=== PATIENT | male | born 1980 | race Caucasian/White ===

== ENCOUNTER 2020-05-21 00:20 | Inpatient (IN) | payer OTHER, MEDICAID ==
[~2020-05-21] VITALS: Ht 170.2 cm; Wt 108.9 kg
[~2020-05-21 00:20] MED LIST: BUSP30TA2 PO; CHOL100046 PO; METO-385 PO
[2020-05-21] MEDS ORDERED: ONDANSETRON HCL 4MG/2ML INJ IV STA (01:11)
[2020-05-21] MEDS ORDERED: KETOROLAC 30MG/ML VIAL IV STA (01:11)
[2020-05-21] MEDS ORDERED: SODIUM CHLORIDE 0.9% 1,000 ML IV ONE (01:15)
[2020-05-21 01:49] LABS: BASOPHILS % 0.4 % (0.0-2.0); EOSINOPHILS % 0.8 % (0.0-5.0); HEMOGLOBIN. 15.3 g/dL (14.0-18.0); LYMPHOCYTES % 10.2 % (20.0-50.0); MEAN CORPUSCULAR HEMOGLOBIN 37.7 pg (28.0-32.0); MEAN CORPUSCULAR VOLUME 108.1 fL (80.0-94.0); MEAN PLATELET VOLUME 7.8 fl (7.4-10.4); MONOCYTES % 6.7 % (2.0-8.0); NEUTROPHILS % 81.9 % (40.0-76.0); PLATELET 278 x1000/uL (130-400); RED BLOOD CELL COUNT 4.07 mill/uL (4.7-6.1); RED CELL DISTRIBUTION WIDTH 17.4 % (11.6-14.6)
[2020-05-21 01:55] LABS: CHLORIDE 100 mEq/L (98-107)
[2020-05-21] MEDS ORDERED: POTASSIUM CHLORIDE 20MEQ TABLET SR PO NR (02:15)
[2020-05-21 02:18] LABS: INR 1.1; PARTIAL THROMBOPLASTIN TIME 30.3 sec (23.4-31.0); PROTHROMBIN TIME 11.7 sec (9.6-11.0)
[2020-05-21] MEDS ORDERED: IOHEXOL-350 100 ML BOTTLE ONE (03:01)
[2020-05-21] MEDS ORDERED: CEFTRIAXONE 1 G PREMIX 50 ML IV NR (04:00)
[2020-05-21] MEDS ORDERED: SODIUM CHLORIDE 0.9% 1000ML BAG (SEPSIS BOLUS) IV NR (04:00)
[2020-05-21] MEDS ORDERED: ASPIRIN 81MG TABLET PO ONE (04:00)
[2020-05-21] MEDS ORDERED: AZITHROMYCIN 500 MG in DEXT 5% WATER 250 ML IV NR (04:00)
[2020-05-21 06:10] LABS: CLARITY URINE CLEAR (CLEAR); COLOR URINE ORANGE (YELLOW); KETONES URINE NEGATIVE (NEGATIVE); LEUKOCYTE ESTERASE URINE 1+ (NEGATIVE); NITRITE URINE POSITIVE (NEGATIVE); OCCULT BLOOD URINE NEGATIVE (NEGATIVE); PH URINE 8.5 (4.5-8.0); PROTEIN URINE 1+ (NEGATIVE); SPECIFIC GRAVITY URINE 1.016 (1.005-1.030)
[2020-05-21] MEDS ORDERED: DOCUSATE SODIUM 100MG CAPSULE PO PRN (06:30)
[2020-05-21] MEDS ORDERED: METOPROLOL TARTRATE 50MG TABLET PO SCH (06:30)
[2020-05-21] MEDS ORDERED: IPRATROPIUM/ALBUTEROL 0.5-3(2.5)MG/3ML NEB HHN PRN (06:30)
[2020-05-21] MEDS ORDERED: ACETAMINOPHEN 325MG TABLET PO PRN (06:30)
[2020-05-21 07:43] LABS: BG BASE EXCESS 0.7 mmol/L (-2.0-2.0); BG CARBOXYHEMOGLOBIN 2.6 % (0.5-1.5); BG DEOXYHEMOGLOBIN 5.9 % (0.0-5.0); BG HCO3 ACT 24.6 mmol/L (22.0-26.0); BG OXYGEN SATURATION 93.9 % (92.0-98.5); BG OXYHEMOGLOBIN 91.5 % (94.0-97.0); BG PCO2 37.1 mmHg (35.0-45.0); BG PH 7.439 (7.350-7.450); BG PO2 75.7 mmHg (75.0-100.0); BG SAMPLE SITE LEFT RADIAL; BG TOTAL HEMOGLOBIN 13.9 g/dL (12.0-18.0); BG VENT MODE ROOM AIR
[2020-05-21] MEDS: FAMOTIDINE 20MG TABLET PO SCH ×2 (08:42→23:36)
[2020-05-21] MEDS: DEXAMETHASONE 10 MG/ML VIAL IV SCH (08:42)
[2020-05-21] MEDS: ENOXAPARIN 100MG/ML SYR SUBCUT SCH ×2 (08:43→23:35)
[2020-05-21 09:05] VITALS: BP 138/78
[2020-05-21 12:00] VITALS: BP 140/78
[2020-05-21 12:24] LABS: CHLORIDE 110 mEq/L (98-107)
[2020-05-21 12:30] LABS: HEMATOCRIT. 39.5 % (42.0-52.0); HEMOGLOBIN. 13.7 g/dL (14.0-18.0); MEAN CORPUSCULAR VOLUME 109.9 fL (80.0-94.0); MEAN PLATELET VOLUME 7.9 fl (7.4-10.4); PLATELET 245 x1000/uL (130-400); RED CELL DISTRIBUTION WIDTH 17.7 % (11.6-14.6)
[2020-05-21] MEDS: NICOTINE 21MG PATCH TD SCH (12:52)
[2020-05-21] MEDS: HYDROMORPHONE HCL/PF 2MG/ML CPJ IV PRN ×3 (12:52→23:34)
[2020-05-21 13:34] LABS: PLATELET ESTIMATE NORMAL
[2020-05-21] MEDS: SODIUM CHLORIDE 0.9% INJ 3ML FLUSH IVF SCH ×2 (15:23→23:36)
[2020-05-21 16:00] VITALS: BP 138/55
[2020-05-21 20:44] VITALS: BP 144/75
[2020-05-22] VITALS: BP 152/88
[2020-05-22 04:00] VITALS: BP 127/75
[2020-05-22] MEDS: SODIUM CHLORIDE 0.9% INJ 3ML FLUSH IVF SCH ×3 (06:00→22:08)
[2020-05-22] MEDS ORDERED: AZITHROMYCIN 500 MG in DEXT 5% WATER 250 ML IV SCH (06:00)
[2020-05-22] MEDS: AZITHROMYCIN 500 MG in DEXT 5% WATER 250 ML IV SCH (06:00)
[2020-05-22] MEDS: HYDROMORPHONE HCL/PF 2MG/ML CPJ IV PRN ×3 (07:51→21:59)
[2020-05-22] MEDS: DEXAMETHASONE 10 MG/ML VIAL IV SCH (08:04)
[2020-05-22] MEDS: FAMOTIDINE 20MG TABLET PO SCH ×2 (08:04→20:25)
[2020-05-22] MEDS: ENOXAPARIN 100MG/ML SYR SUBCUT SCH (08:04)
[2020-05-22] MEDS: NICOTINE 21MG PATCH TD SCH (08:04)
[2020-05-22 12:00] VITALS: BP 117/75
[2020-05-22 16:00] VITALS: BP 145/83
[2020-05-22 20:00] VITALS: BP 140/80
[2020-05-22] MEDS: ENOXAPARIN 120MG/0.8ML SYR SUBCUT SCH (20:26)
[2020-05-23] VITALS: BP 138/75
[2020-05-23 04:00] VITALS: BP 133/70
[2020-05-23] MEDS: HYDROMORPHONE HCL/PF 2MG/ML CPJ IV PRN ×4 (04:43→22:58)
[2020-05-23] MEDS: AZITHROMYCIN 500 MG in DEXT 5% WATER 250 ML IV SCH (06:10)
[2020-05-23] MEDS: SODIUM CHLORIDE 0.9% INJ 3ML FLUSH IVF SCH ×3 (06:10→21:07)
[2020-05-23 07:37] LABS: BASOPHILS % 0.2 % (0.0-2.0); EOSINOPHILS % 0.2 % (0.0-5.0); HEMATOCRIT. 36.1 % (42.0-52.0); HEMOGLOBIN. 12.5 g/dL (14.0-18.0); LYMPHOCYTES % 19.6 % (20.0-50.0); MEAN CORPUSCULAR HEMOGLOBIN 37.5 pg (28.0-32.0); MEAN CORPUSCULAR VOLUME 108.6 fL (80.0-94.0); MEAN PLATELET VOLUME 7.9 fl (7.4-10.4); MONOCYTES % 6.3 % (2.0-8.0); NEUTROPHILS % 73.7 % (40.0-76.0); PLATELET 284 x1000/uL (130-400); RED BLOOD CELL COUNT 3.33 mill/uL (4.7-6.1)
[2020-05-23 07:45] VITALS: BP 125/56
[2020-05-23 07:48] LABS: CHLORIDE 107 mEq/L (98-107)
[2020-05-23] MEDS: ENOXAPARIN 120MG/0.8ML SYR SUBCUT SCH ×2 (09:07→20:56)
[2020-05-23] MEDS: NICOTINE 21MG PATCH TD SCH (09:07)
[2020-05-23] MEDS: FAMOTIDINE 20MG TABLET PO SCH ×2 (09:07→20:55)
[2020-05-23 11:51] VITALS: BP 131/77
[2020-05-23 16:00] VITALS: BP 125/75
[2020-05-23 20:00] VITALS: BP 127/76
[2020-05-24] VITALS (7 sets, daily range): BP systolic 108–154; BP diastolic 66–89
[2020-05-24] MEDS: HYDROMORPHONE HCL/PF 2MG/ML CPJ IV PRN ×4 (04:18→21:33)
[2020-05-24] MEDS: SODIUM CHLORIDE 0.9% INJ 3ML FLUSH IVF SCH ×3 (05:32→21:34)
[2020-05-24] MEDS: AZITHROMYCIN 500 MG in DEXT 5% WATER 250 ML IV SCH (05:32)
[2020-05-24] MEDS: NICOTINE 21MG PATCH TD SCH (10:11)
[2020-05-24] MEDS: FAMOTIDINE 20MG TABLET PO SCH ×2 (10:12→21:34)
[2020-05-24] MEDS: ENOXAPARIN 120MG/0.8ML SYR SUBCUT SCH ×2 (10:31→21:34)
[2020-05-24 12:35] LABS: HEMATOCRIT 39.8 % (42.0-52.0); HEMOGLOBIN 13.9 g/dL (14.0-18.0); MEAN CORPUSCULAR HEMOGLOBIN 37.9 pg (28.0-32.0); MEAN CORPUSCULAR VOLUME 108.4 fL (80.0-94.0); PLATELET 340 x1000/uL (130-400); RED BLOOD CELL COUNT 3.67 mill/uL (4.7-6.1); RED CELL DISTRIBUTION WIDTH 18.3 % (11.6-14.6)
[2020-05-24 12:44] LABS: CHLORIDE 105 mEq/L (98-107)
[2020-05-25] VITALS: BP 141/85
[2020-05-25] MEDS: HYDROMORPHONE HCL/PF 2MG/ML CPJ IV PRN ×4 (01:07→13:07)
[2020-05-25 04:00] VITALS: BP 114/84
[2020-05-25] MEDS: SODIUM CHLORIDE 0.9% INJ 3ML FLUSH IVF SCH (05:15)
[2020-05-25] MEDS: AZITHROMYCIN 500 MG in DEXT 5% WATER 250 ML IV SCH (05:15)
[2020-05-25 06:04] LABS: CHLORIDE 104 mEq/L (98-107)
[2020-05-25 06:27] LABS: HEMATOCRIT. 36.1 % (42.0-52.0); HEMOGLOBIN. 12.7 g/dL (14.0-18.0); MEAN CORPUSCULAR HEMOGLOBIN 38.6 pg (28.0-32.0); MEAN CORPUSCULAR VOLUME 109.3 fL (80.0-94.0); MEAN PLATELET VOLUME 7.9 fl (7.4-10.4); PLATELET 315 x1000/uL (130-400); RED CELL DISTRIBUTION WIDTH 18.5 % (11.6-14.6)
[2020-05-25 08:00] VITALS: BP 147/85
[2020-05-25 08:30] LABS: PLATELET ESTIMATE NORMAL
[2020-05-25] MEDS: NICOTINE 21MG PATCH TD SCH (09:13)
[2020-05-25] MEDS: ENOXAPARIN 120MG/0.8ML SYR SUBCUT SCH (09:14)
[2020-05-25] MEDS: FAMOTIDINE 20MG TABLET PO SCH (09:15)
[2020-05-25 12:00] VITALS: BP 119/77
[2020-05-25 14:33] VITALS: BP 18/119
== END 2020-05-25 15:25 | disposition home health service (06) | DRG 175 ==
LOC: ER 00:20 → 7EST 05:49 → EDBEDREQ 06:00 → ENRESERV 08:16 → 8WST 05-22 22:26
PROVIDERS: ADMIT Ophthalmology; ATTEND Ophthalmology
DX: I26.99 Other pulmonary embolism without acute cor pulmonale (principal); J96.01 Acute respiratory failure with hypoxia; E87.2 Acidosis; I82.412 Acute embolism and thrombosis of left femoral vein; Z20.828 Contact with and (suspected) exposure to other viral communicable diseases; F41.9 Anxiety disorder, unspecified; F17.210 Nicotine dependence, cigarettes, uncomplicated; F32.9 Major depressive disorder, single episode, unspecified; I10 Essential (primary) hypertension; K76.0 Fatty (change of) liver, not elsewhere classified; Z82.49 Family history of ischemic heart disease and other diseases of the circulatory system; Z87.442 Personal history of urinary calculi; Z79.01 Long term (current) use of anticoagulants; Z79.899 Other long term (current) drug therapy
CPT/HCPCS: 36415; 36600; 71275; 80048; 80053; 81003; 82375; 82805; 83605; 83615; 83735; 83880; 84145; 84484; 85025; 85027; 85379; 86141; 87635; 93005; 93306; 93970; 97162; 99291; J0456; J0696; J1100; J1170; J1650; J1885; J2405; J7030; J7060; Q9967

== ENCOUNTER 2024-10-27 15:42 | Inpatient (IN) | payer MEDICAID, OTHER ==
[~2024-10-27] VITALS: Ht 170.2 cm; Wt 112.5 kg
[2024-10-27 15:44] VITALS: O2SAT 95
[2024-10-27] MEDS: SODIUM CHLORIDE 0.9% 1,000 ML IV ONE ×2 (16:44→20:59)
[2024-10-27] MEDS: ONDANSETRON HCL 4MG/2ML INJ IV STA (16:48)
[2024-10-27 17:11] LABS: BASOPHILS % 0.4 % (0.0-2.0); DIFFERENTIAL COMMENT 0; EOSINOPHILS % 0.4 % (0.0-5.0); HEMATOCRIT. 51.3 % (42.0-52.0); HEMOGLOBIN. 17.8 g/dL (14.0-18.0); MEAN CORPUSCULAR HEMOGLOBIN 35.7 pg (28.0-32.0); MEAN CORPUSCULAR HGB CONC 34.7 g/dL (31.0-37.0); MEAN CORPUSCULAR VOLUME 102.8 fL (80.0-94.0); MEAN PLATELET VOLUME 8.3 fl (7.4-10.4); MONOCYTES % 11.8 % (2.0-8.0); NEUTROPHILS % 65.4 % (40.0-76.0); PLATELET 193 x1000/uL (130-400); RED BLOOD CELL COUNT 4.99 mill/uL (4.7-6.1); WHITE BLOOD COUNT 13.2 x1000/uL (4.5-11.0)
[2024-10-27 17:17] LABS: CHLORIDE 96 mEq/L (98-107); POTASSIUM 3.5 mEq/L (3.5-5.1); SODIUM 139 mEq/L (136-145)
[2024-10-27 17:18] LABS: CARBON DIOXIDE 29 mEq/L (21-32)
[2024-10-27 17:19] LABS: CALCIUM 10.6 mg/dL (8.7-10.4)
[2024-10-27 17:23] LABS: CREATININE 0.7 mg/dL (0.6-1.3)
[2024-10-27 17:24] LABS: ETHANOL BLOOD 282 mg/dL (<10); GLUCOSE 117 mg/dL (70-105); UREA NITROGEN BLOOD 6 mg/dL (9-23)
[2024-10-27 17:25] LABS: ALANINE AMINOTRANSFERASE 45 IU/L (10-49); ALBUMIN 4.3 g/dL (3.2-4.8); ASPARTATE AMINOTRANSFERASE 70 IU/L (<34)
[2024-10-27 17:26] LABS: BILIRUBIN DIRECT 0.2 mg/dL (<=3.0); BILIRUBIN TOTAL 0.7 mg/dL (0.1-1.0); LACTIC ACID 3.3 mmol/L (0.4-2.0); TROPONIN I HIGH SENSITIVITY < 4 ng/L (3.0-53)
[2024-10-27 17:41] LABS: INR 1.1; PARTIAL THROMBOPLASTIN TIME 28.2 sec (23.4-31.0); PROTHROMBIN TIME 11.6 sec (9.6-11.0)
[2024-10-27] MEDS: SODIUM CHLORIDE 0.9% (SEPSIS BOLUS) IV ONE (18:02)
[2024-10-27 18:31] LABS: CLARITY URINE CLOUDY (CLEAR); COLOR URINE YELLOW (YELLOW); GLUCOSE URINE NEGATIVE (NEGATIVE); KETONES URINE NEGATIVE (NEGATIVE); LEUKOCYTE ESTERASE URINE NEGATIVE (NEGATIVE); NITRITE URINE NEGATIVE (NEGATIVE); OCCULT BLOOD URINE TRACE (NEGATIVE); PH URINE 7.5 (4.5-8.0); PROTEIN URINE TRACE (NEGATIVE); SPECIFIC GRAVITY URINE 1.009 (1.005-1.030); UROBILINOGEN URINE 0.2 E.U./dL (0.2-1.0)
[2024-10-27 18:35] LABS: LACTIC ACID 2.8 mmol/L (0.4-2.0)
[2024-10-27] MEDS: LORAZEPAM 0.5MG TABLET PO ONE (19:09)
[2024-10-27 19:24] LABS: AMORPHOUS SEDIMENT URINE 2+ /lpf; BACTERIA URINE 2+; RBC URINE 0-2 /hpf (0-2); SQUAMOUS EPITHELIAL CELL URINE FEW /lpf (RARE/1+); WBC URINE 0-2 /hpf (0-2)
[2024-10-27] MEDS: METOCLOPRAMIDE HCL 10MG/2ML VIAL IV ONE (21:00)
[2024-10-27] MEDS: LORAZEPAM 2MG/ML INJ IV ONE (21:10)
[2024-10-27 22:35] VITALS: BP 151/97; PULSE 102; RESP 17; TEMP 36.3; O2SAT 95
[2024-10-27 22:50] VITALS: BP 151/97; PULSE 106; RESP 19; TEMP 37
[2024-10-28 00:04] VITALS: BP 151/83; PULSE 95; RESP 19; TEMP 36.2; O2SAT 93
[2024-10-28] MEDS: IOHEXOL-350 100 ML BOTTLE ONE (00:22)
[2024-10-28] MEDS ORDERED: ONDANSETRON HCL 4MG TABLET PO PRN (01:15)
[2024-10-28 04:04] VITALS: BP 92/71; PULSE 84; RESP 14; TEMP 36.2; O2SAT 96
[2024-10-28] MEDS: PANTOPRAZOLE 40MG DR TABLET PO SCH (06:53)
[2024-10-28] MEDS: ACETAMINOPHEN 650MG/20.3ML UDC PO PRN (06:56)
[2024-10-28] MEDS: ONDANSETRON HCL 4MG/2ML INJ IV PRN (06:58)
[2024-10-28 08:00] VITALS: BP 133/67; PULSE 60; RESP 15; TEMP 36.7; O2SAT 98
[2024-10-28] MEDS: NICOTINE 21MG PATCH TD SCH (09:04)
[2024-10-28] MEDS: FOLIC ACID 1MG TABLET PO SCH (09:04)
[2024-10-28] MEDS: THIAMINE HCL 100MG TABLET PO SCH (09:04)
[2024-10-28] MEDS: LORAZEPAM 1MG TABLET PO PRN (09:55)
[2024-10-28] MEDS ORDERED: PANTOPRAZOLE 40MG DR TABLET PO SCH (10:15)
[2024-10-28] MEDS: CHLORDIAZEPOXIDE 25MG CAPSULE PO NR (10:18)
[2024-10-28 12:00] VITALS: BP 141/95; PULSE 80; RESP 18; TEMP 37.2; O2SAT 100
[2024-10-28 16:00] VITALS: BP 144/90; PULSE 74; RESP 15; TEMP 37; O2SAT 98
[2024-10-28] MEDS: CHLORDIAZEPOXIDE 25MG CAPSULE PO SCH (16:28)
[2024-10-28 20:02] VITALS: BP 127/85; PULSE 80; RESP 22; TEMP 36.2; O2SAT 97
[2024-10-28] MEDS: INFLUENZA VACCINE 05/PF 0.5 ML SYRINGE IM ONE (21:00)
[2024-10-29 00:02] VITALS: BP 126/83; PULSE 94; RESP 16; TEMP 36.8; O2SAT 94
[2024-10-29 01:13] LABS: *AMPHETAMINES SCREEN URINE NEGATIVE (NEGATIVE); *BARBITURATES SCREEN URINE NEGATIVE (NEGATIVE); *BENZODIAZEPINES SCREEN URINE NEGATIVE (NEGATIVE)
[2024-10-29 01:14] LABS: *COCAINE SCREEN URINE NEGATIVE (NEGATIVE); CANNABINOID URINE SCREEN NEGATIVE (NEGATIVE); ECSTASY MDMA SCREEN URINE NEGATIVE (NEGATIVE); METHADONE URINE SCREEN NEGATIVE (NEGATIVE); OPIATES URINE SCREEN NEGATIVE (NEGATIVE); PHENCYCLIDINE URINE SCREEN NEGATIVE (NEGATIVE)
[2024-10-29 04:02] VITALS: BP 125/70; PULSE 85; RESP 21; TEMP 36.2; O2SAT 94
[2024-10-29 06:37] LABS: BASOPHILS % 0.2 % (0.0-2.0); DIFFERENTIAL COMMENT 0; EOSINOPHILS % 2.4 % (0.0-5.0); HEMATOCRIT. 42.4 % (42.0-52.0); HEMOGLOBIN. 14.4 g/dL (14.0-18.0); LYMPHOCYTES % 26.8 % (20.0-50.0); MEAN CORPUSCULAR HEMOGLOBIN 35.4 pg (28.0-32.0); MEAN CORPUSCULAR VOLUME 104.3 fL (80.0-94.0); MEAN PLATELET VOLUME 8.3 fl (7.4-10.4); MONOCYTES % 8.8 % (2.0-8.0); NEUTROPHILS % 61.8 % (40.0-76.0); PLATELET 82 x1000/uL (130-400); RED BLOOD CELL COUNT 4.06 mill/uL (4.7-6.1); RED CELL DISTRIBUTION WIDTH 16.1 % (11.6-14.6); WHITE BLOOD COUNT 5.2 x1000/uL (4.5-11.0)
[2024-10-29 06:47] LABS: INR 1.2; PROTHROMBIN TIME 12.5 sec (9.6-11.0)
[2024-10-29 06:52] LABS: CHLORIDE 104 mEq/L (98-107); POTASSIUM 3.5 mEq/L (3.5-5.1); SODIUM 139 mEq/L (136-145)
[2024-10-29 06:55] LABS: CALCIUM 7.8 mg/dL (8.7-10.4); CARBON DIOXIDE 26 mEq/L (21-32)
[2024-10-29 07:00] LABS: CREATININE 0.7 mg/dL (0.6-1.3); GLUCOSE 76 mg/dL (70-105); PROTEIN TOTAL 6.3 g/dL (6.0-8.3); UREA NITROGEN BLOOD 9 mg/dL (9-23)
[2024-10-29 07:01] LABS: AMMONIA 30 uMol/L (<32); LACTATE DEHYDROGENASE 183 IU/L (120-246)
[2024-10-29 07:02] LABS: ALANINE AMINOTRANSFERASE 30 IU/L (10-49); ALBUMIN 3.4 g/dL (3.2-4.8); ASPARTATE AMINOTRANSFERASE 52 IU/L (<34); BILIRUBIN DIRECT 0.9 mg/dL (<=3.0); BILIRUBIN TOTAL 2.2 mg/dL (0.1-1.0)
[2024-10-29 07:41] LABS: VITAMIN B12 SERUM 419 pg/mL (211-911)
[2024-10-29 07:44] LABS: FOLIC ACID (FOLATE) SERUM 11.54 ng/mL (>5.38)
[2024-10-29 07:54] LABS: HEPATITIS B SURFACE ANTIGEN NEGATIVE (Negative)
[2024-10-29 08:00] VITALS: BP 135/92; PULSE 78; RESP 20; TEMP 36.8; O2SAT 96
[2024-10-29 08:15] LABS: HEPATITIS A AB IGM NEGATIVE (Negative); HEPATITIS B CORE AB IGM NEGATIVE (Negative)
[2024-10-29 08:16] LABS: HEPATITIS C AB NON REACTIVE (Neg) (Negative)
[2024-10-29] MEDS ORDERED: VANC125C11 MT (10:25)
[2024-10-29] MEDS ORDERED: CARVEDILOL 3.125 MG TABLET PO SCH (11:00)
[2024-10-29] MEDS ORDERED: POTASSIUM CHLORIDE 20MEQ TABLET SR PO NR (11:15)
[2024-10-29] MEDS ORDERED: VANCOMYCIN 125MG/2.5ML ORAL SYR PO SCH (12:00)
[2024-10-29] MEDS ORDERED: MAGNESIUM 4 G PREMIX 100 ML IV NR (13:00)
== END 2024-10-29 08:39 | disposition left against medical advice (07) | DRG 241 ==
LOC: ER 15:42 → EDBEDREQ 20:46 → EDBEDREQTM 20:46 → 3WST 22:36
PROVIDERS: ADMIT Internal Medicine; ATTEND Internal Medicine
DX: K29.20 Alcoholic gastritis without bleeding (principal); E87.20 Acidosis, unspecified; K74.60 Unspecified cirrhosis of liver; F10.239 Alcohol dependence with withdrawal, unspecified; F32.A Depression, unspecified; I10 Essential (primary) hypertension; D75.89 Other specified diseases of blood and blood-forming organs; F17.210 Nicotine dependence, cigarettes, uncomplicated; Z53.29 Procedure and treatment not carried out because of patient's decision for other reasons; Y90.9 Presence of alcohol in blood, level not specified; B96.89 Other specified bacterial agents as the cause of diseases classified elsewhere; K63.89 Other specified diseases of intestine; Z86.711 Personal history of pulmonary embolism; Z86.718 Personal history of other venous thrombosis and embolism; Z79.01 Long term (current) use of anticoagulants; Z91.148 Patient's other noncompliance with medication regimen for other reason; Z91.199 Patient's noncompliance with other medical treatment and regimen due to unspecified reason; Z71.6 Tobacco abuse counseling
CPT/HCPCS: 36415; 71045; 74174; 76700; 80048; 80076; 80305; 80320; 81003; 82105; 82140; 82378; 82607; 82746; 83605; 83615; 83735; 84145; 84484; 85025; 86705; 86709; 86850; 86900; 87340; 87493; 90686; 93005; 93970; 99285; A4606; J2060; J2405; J2765; J3475; J7030; Q0162; Q9967; G0480

== ENCOUNTER 2025-06-18 20:02 | Emergency (ER) | payer MEDICAID ==
[~2025-06-18] VITALS: Ht 175.3 cm; Wt 105.0 kg
[~2025-06-18 20:02] MED LIST changes: -BUSP30TA2 PO; -CHOL100046 PO; -METO-385 PO; +VANC125C11 MT
[2025-06-18 20:04] VITALS: O2SAT 95
[2025-06-18] MEDS: SODIUM CHLORIDE 0.9% 1,000 ML IV ONE (20:47)
[2025-06-18 21:08] LABS: BASOPHILS % 0.7 % (0.0-2.0); EOSINOPHILS % 2.1 % (0.0-5.0); HEMATOCRIT. 46.3 % (42.0-52.0); HEMOGLOBIN. 15.6 g/dL (14.0-18.0); LYMPHOCYTES % 22.7 % (20.0-50.0); MONOCYTES % 6.6 % (2.0-8.0); NEUTROPHILS % 67.9 % (40.0-76.0); RED BLOOD CELL COUNT 4.11 mill/uL (4.7-6.1); RED CELL DISTRIBUTION WIDTH 14.3 % (11.6-14.6)
[2025-06-18 21:13] LABS: ADD RBC MORPHOLOGY YES
[2025-06-18 21:25] LABS: UREA NITROGEN BLOOD < 5 mg/dL (9-23)
[2025-06-18 21:26] LABS: CREATININE 0.8 mg/dL (0.6-1.3)
[2025-06-18 21:28] LABS: ASPARTATE AMINOTRANSFERASE 58 IU/L (<34); BILIRUBIN DIRECT 0.2 mg/dL (<=3.0); BILIRUBIN TOTAL 0.3 mg/dL (0.1-1.0); PROTEIN TOTAL 6.9 g/dL (6.0-8.3)
[2025-06-18 21:30] LABS: MEAN PLATELET VOLUME 8.9 fl (7.4-10.4); PLATELET 227 x1000/uL (130-400); PLATELET ESTIMATE NORMAL
[2025-06-18 22:04] LABS: ETHANOL BLOOD 420 mg/dL (<10)
[2025-06-18] MEDS: ACETAMINOPHEN 325MG TABLET PO ONE (22:09)
[2025-06-18 23:13] VITALS: BP 107/47; PULSE 83; RESP 18; TEMP 37.2; O2SAT 95
== END 2025-06-18 23:43 | disposition home or self-care (01) ==
LOC: ER 20:02
DX: F10.229 Alcohol dependence with intoxication, unspecified (principal); R10.84 Generalized abdominal pain; I10 Essential (primary) hypertension; F12.90 Cannabis use, unspecified, uncomplicated; Y90.9 Presence of alcohol in blood, level not specified
CPT/HCPCS: 80076; 80048; 80320; 83735; 85025; 36415; 74176; 96360; 96361; 99284; J7030; G0480